=== PATIENT | female | born 1965 | race Caucasian/White ===

== ENCOUNTER 2017-08-18 09:53 | Outpatient (CLI) | payer OTHER | END 2017-08-18 09:54 | disposition home or self-care (01) | LOC: BICRAD 09:53 | PROVIDERS: ATTEND Family Medicine | DX: M25.561 Pain in right knee (principal) | CPT/HCPCS: 36415; 84550; 85652; 86140; 86430 ==

== ENCOUNTER 2018-04-30 16:45 | Outpatient (CLI) | payer OTHER ==
[~2018-04-30 16:45] MED LIST: Gadobenate Dimeglumine 529 MG/1 ML (20ML VIAL) ONE
--- NOTE | 2018-05-01 09:02 | MRI ---
MRI LUMBAR SPINE WITH AND WITHOUT CONTRAST: DATE: 05-01-19 HISTORY: 53-year-old female with low back pain and right lumbar radiculopathy. COMPARISON: None available. TECHNIQUE: Multiple sequences obtained in axial and sagittal planes, pre and post IV injection of gadolinium-bas ed contrast agent: 15 ml MultiHance FINDINGS: There is a transitional level at the lumbosacral junction. Without the benefit of plain radiographs a nd CT for counting purposes, the following, somewhat arbitrary designation of levels will be used. Th e level at the lumbosacral junction will be designated at a partially sacralized L5. The lowest fully developed disc space will be designated at L5-S1. Vertebral body heights are maintained. Alignment is normal. Conus medullaris terminates at L1-2. At L 4-5 there is moderate disc space narrowing, especially posteriorly where there are Modic type II endp late marrow changes. There is no high grade disc space narrowing at any of the other levels. The caud a equina is arranged in a symmetrical, normal distribution throughout the thecal sac. The findings by individual levels are as follows: T12-L1: Essentially normal. L1-2: Essentially normal. L2-3: No central stenosis or high grade neural foraminal stenosis. Minimal disc bulge. In the right n eural foramen, there is a subtle finding of mild fat stranding representing edema, surrounding the ex iting right L2 nerve root. There is increased enhancement of the exiting right L2 nerve root compared to the contralateral left. There is a subtle finding of a tiny 0.2 x 0.5 cm T1-hypointense and T2-in termediate signal tiny mass at the superior aspect of the neural foramen, which is surrounded by enha ncing inflammatory granulation tissue, abutting the superior aspect of the exiting right L2 nerve isiah t (sagittal images 5 of 20 of Series 3, 4, and 8, and 5; axial images 18 of 43 series 6, 7, 9 and 10) . Mild disc space narrowing. Minimal disc bulge. No central stenosis. No left neural foraminal stenos is. No high grade facet DJD. L3-4: No central or high grade neural foraminal stenosis. L4-5: Degenerative disc disease as described above. Mild diffuse disc bulge, which is asymmetrically larger on the left lateral and far lateral sides compared to centrally and to the right. Central spin al canal and thecal sac are generous in caliber, but there is left lateral recess stenosis. Mild bila teral degenerative facet changes. Moderate left neural foraminal stenosis. Mild right neural foramina l stenosis. Left hemilaminectomy defect. Enhancing scar tissue around the left L5 nerve root at the l eft lateral recess. L5-S1: The disc space is slightly hypoplastic. No central or neural foraminal stenosis. The bilateral facet joints are mildly hypoplastic. IMPRESSION: 1. Transitional level at lumbosacral junction, arbitrarily designated as a partially sacralized L5, f or the purposes of this report. 2. Inflammatory changes at the right L2-3 neural foramen causing right L2 radiculitis. This is appare ntly caused by a tiny fragment of (presumably migrated, sequestered disc herniation) in the neural fo ramen inciting the inflammatory process. 3. Status post left hemilaminectomy at L4-5. SONAL Ford POS: BETH
== END 2018-04-30 16:46 | disposition home or self-care (01) ==
LOC: MRI 16:45
PROVIDERS: ATTEND Physical Medicine & Rehabilitation
DX: M54.5 Low back pain (principal); M79.604 Pain in right leg; M54.16 Radiculopathy, lumbar region; Z98.890 Other specified postprocedural states
CPT/HCPCS: 72158; A9579

== ENCOUNTER 2018-06-12 17:38 | Emergency (ER) | payer OTHER ==
[~2018-06-12 17:38] MED LIST changes: -Gadobenate Dimeglumine 529 MG/1 ML (20ML VIAL) ONE; +ISOVUE-370 76%-LOCM 1 ML ONE; +Iopamidol 370 76% 50 ML VIAL FS ONE
[2018-06-12 18:04] LABS: #Basophils 0.1 thou/uL (0.0-0.2); #Eosinphils 0.1 thou/uL (0.0-0.7); #Lymphocytes 2.4 thou/uL (1.20-3.40); #Monocytes 1.3 thou/uL (0.11-0.59); #Neutrophils 13.8 thou/uL (1.40-6.50); %Basophils 0.4 % (0.0-1.0); %Eosinophils 0.3 % (0.0-10.0); %Lymphocytes 13.5 % (21.0-51.0); %Monocytes 7.2 % (0.0-10.0); %Neutrophils 78.5 % (42.0-75.0); Hemoglobin 13.6 g/dL (12.0-16.0); Mean Corpuscular HGB CONC 31.7 g/dL (32.0-36.0); Mean Corpuscular Hemoglobin 29.5 pg (27.0-31.0); Mean Corpuscular Volume 93.1 fL (78.0-98.0); Mean Platelet Volume 7.5 fL (7.4-10.4); Platelet Count 290 thou/uL (130-400); RBC Distribution Width 11.8 % (11.5-14.5); White Blood Cell (WBC) Count 17.5 thou/uL (4.8-10.8)
[2018-06-12 18:23] LABS: Bilirubin Negative (Negative); Blood, Urine Large (Negative); Clarity CLOUDY (Clear); Glucose, Urine (Dipstick) Negative (Negative); Leukocyte Small (Negative); Nitrite Negative (Negative); Protein, Urine (Dipstick) 30 mg/dL (Neg-Trace); Specific Gravity, Urine 1.019 (1.002-1.036); Urobilinogen 0.2 mg/dL (0.2-1.0)
[2018-06-12 18:24] LABS: ALT (SGPT) 25 U/L (8-55); AST (SGOT) 22 U/L (5-34); Albumin 4.7 g/dL (3.5-5.0); Alkaline Phosphatase 98 U/L (40-150); Anion Gap 17 mmol/L (10-20); BUN (Urea Nitrogen) 19 mg/dL (9.8-20.1); Bilirubin, Total 0.8 mg/dL (0.2-1.2); Calc. Creatinine Clearance 0 mL/min (70-130); Calcium 10.1 mg/dL (7.8-10.44); Carbon Dioxide 23 mmol/L (22-29); Chloride 102 mmol/L (98-107); Estimated GFR-MDRD 58; Globulin 3.2 g/dL (2.4-3.5); Glucose 122 mg/dL (70-105); Lipase 18 U/L (8-78); Potassium 3.6 mmol/L (3.5-5.1); Protein, Total 7.9 g/dL (6.0-8.3); Sodium 138 mmol/L (136-145)
[2018-06-12 18:24] LABS: Bacteria/HPF None Seen HPF (None Seen); Hyaline Casts/LPF 7-10 HYALINE CAST LPF (0-3 Hyaline); Pathc Cast-AUWi Flag 2.18 (0-2.49); RBC/HPF GREATER THAN 50-TNTC HPF (0-3)
[2018-06-12] MEDS ORDERED: Morphine 4 MG/ML VIAL ONE (18:25)
[2018-06-12] MEDS ORDERED: Ondansetron PF 4 MG/2 ML Vial ONE (18:26)
[2018-06-12 18:36] LABS: Renal Epithelial None Seen HPF (0-3); Transitional Epithelial NONE SEEN HPF (0-3)
--- NOTE | 2018-06-12 21:32 | CT ---
CONTRAST ENHANCED CT IMAGES ABDOMEN AND PELVIS: 06/12/18 HISTORY: Left lower quadrant pain. Contrast enhanced CT images of the abdomen and pelvis demonstrate the lung bases to be unremarkable. No evidence of free intraperitoneal air seen. The liver, spleen, gallbladder, pancreas, adrenal glands are unremarkable. A small hiatal hernia is seen. There is some gastroesophageal reflux seen. There is mild to moderate left hydroureteronephrosis. The left ureter is dilated along its entire cou rse with an approximately 3 mm distal left ureteral calculus at the left ureterovesicular junction. No dilated loops of small bowel seen. A normal appendix is seen. Mild enhancement and thickening seen in the transverse and descending colon compatible with some coli tis. Also in the lower pole of the left kidney, there is an approximately 7 mm nonobstructing left renal c alculus. Vacuum disc changes seen at the L5-S1 intervertebral disc space. IMPRESSION: 1. Left sided hydroureteronephrosis with distal left ureteral 3 mm calculus. 2. Some gastroesophageal reflux and hiatal hernia. 3. Some areas of colonic thickening compatible colitis in the transverse and descending colon. POS: BETH
[2018-06-12 21:46] LABS: Lactic Acid 1.4 mmol/L (0.5-2.2)
== END 2018-06-12 22:00 | disposition home or self-care (01) ==
LOC: ERS 17:38
DX: N13.2 Hydronephrosis with renal and ureteral calculous obstruction (principal); K52.9 Noninfective gastroenteritis and colitis, unspecified; I10 Essential (primary) hypertension; Z87.891 Personal history of nicotine dependence; Z79.899 Other long term (current) drug therapy
CPT/HCPCS: 36415; 74177; 80053; 81003; 81015; 83605; 83690; 85025; 87040; 87086; 93005; 96361; 96374; 96375; J2270; J2405

== ENCOUNTER 2021-09-30 08:14 | Outpatient (CLI) | payer BC | END 2021-09-30 08:15 | disposition home or self-care (01) | LOC: BICMAMMO 08:14 | PROVIDERS: ATTEND Family Medicine | DX: Z12.31 Encounter for screening mammogram for malignant neoplasm of breast (principal); Z80.3 Family history of malignant neoplasm of breast | CPT/HCPCS: 77063; 77067 ==

== ENCOUNTER 2023-09-01 09:11 | Outpatient (CLI) | payer OTHER ==
[2023-09-01] MEDS ORDERED: Iopamidol-370 76% 500 ML MDV (1 ML CHARGE) ONE (15:05)
== END 2023-09-01 09:12 | disposition home or self-care (01) ==
LOC: BICCT 09:11
PROVIDERS: ATTEND Family Medicine
DX: R10.9 Unspecified abdominal pain (principal); N20.0 Calculus of kidney; K44.9 Diaphragmatic hernia without obstruction or gangrene; R91.1 Solitary pulmonary nodule; N28.89 Other specified disorders of kidney and ureter
CPT/HCPCS: 74178; 82565